=== PATIENT | female | born 1985 | race Caucasian/White ===

== ENCOUNTER 2018-03-04 14:35 | Outpatient (CLI) | END 2018-03-04 15:49 | disposition home or self-care (01) ==

== ENCOUNTER 2018-03-09 14:16 | Outpatient (CLI) | END 2018-03-09 16:20 | disposition home or self-care (01) ==

== ENCOUNTER 2018-03-18 09:29 | Outpatient (CLI) | END 2018-03-18 12:27 | disposition home or self-care (01) ==